=== PATIENT | male | born 1990 | race Caucasian/White ===

== ENCOUNTER 2020-04-10 13:33 | Emergency (ER) | payer MEDICAID ==
[~2020-04-10] VITALS: Ht 188 cm; Wt 104.3 kg
[2020-04-10 13:33] VITALS: BP_SYST 144
--- NOTE | 2020-04-10 13:40 | NUR ---
Patient triaged and placed in waiting room. VSS and patient appears in no acute distress at this time. Accompanied by MOTHER, awaiting available bed, and MD notified of need for MSE.
--- NOTE | 2020-04-10 13:52 | NUR ---
ER Dr. BARAJAS at bedside examining patient.
--- NOTE | 2020-04-10 14:18 | NUR ---
BROUGHT BACK TO BED #7 AND REPORT GIVEN TO NURSE
--- NOTE | 2020-04-10 14:20 | NUR ---
PATIENT PRESENTED TO ER C/O GENERALIZED WEAKNESS. PATIENT AMBULATORY TO ER, AFEBRILE, SKIN PINK & WARM, PAIN /, DENIES N/V/D. PT BIB MOTHER FOR LETHARGY, TIRED, WEAK, DECREASED APPETITE, DIZZY FOR LAST 3 DAYS. pT STSTES HE HAS HX OF AUTISM.
[2020-04-10 14:33] LABS: BASOPHILS % (AUTO) 0.5 % (0.0-2.0); EOSINOPHILS % (AUTO) 0.8 % (0.0-4.0); HEMATOCRIT 45.2 % (36-54); HEMOGLOBIN 15.1 g/dL (14.0-18.0); LYMPHOCYTES # (AUTO) 1.2 K/uL (1.0-5.5); LYMPHOCYTES % (AUTO) 30.7 % (20.5-51.5); MEAN CORPUSCULAR HEMOGLOBIN 31 pg (27-31); MEAN CORPUSCULAR HGB CONC 34 % (32-36); MEAN CORPUSCULAR VOLUME 92 fL (79.0-98.0); MONOCYTES # (AUTO) 0.6 K/uL (0.0-1.0); NEUTROPHILS # (AUTO) 2.2 K/uL (1.8-7.7); PLATELET COUNT (AUTO) 226 K/uL (130-430); RED BLOOD CELL COUNT(AUTO) 4.89 MIL/uL (4.2-6.2); RED CELL DISTRIBUTION WIDTH 13.7 % (9.0-15.0)
[2020-04-10 14:41] LABS: CALCIUM 8.9 mg/dL (8.4-11.0); CREATININE 0.86 mg/dL (0.55-1.30); POTASSIUM 3.9 mmol/L (3.5-5.1)
[2020-04-10 14:48] LABS: ALBUMIN 3.8 g/dL (3.4-4.8); TOTAL BILIRUBIN 0.8 mg/dL (0.0-1.0)
[2020-04-10 15:57] LABS: BILIRUBIN,URINE NEGATIVE (NEGATIVE); CLARITY/URINE CLEAR (CLEAR); COLOR,URINE YELLOW (YELLOW); GLUCOSE,URINE NEGATIVE (NEGATIVE); KETONES,URINE NEGATIVE (NEGATIVE); LEUKOCYTE ESTERASE ,URINE NEGATIVE (NEGATIVE); NITRITE, URINE NEGATIVE (NEGATIVE); PH,URINE 6.5 (5.0-8.0); PROTEIN URINE NEGATIVE (NEGATIVE)
[2020-04-10 16:02] LABS: BLOOD, URINE TRACE (NEGATIVE)
[2020-04-10 16:08] LABS: RBC,URINE 0-3 /HPF (0-3)
[2020-04-10 16:09] LABS: BACTERIA,URINE RARE /HPF (None Seen); MUCUS,URINE None Seen /LPF (None Seen); WBC,URINE 0-3 /HPF (0-3)
--- NOTE | 2020-04-10 16:23 | NUR ---
DR BARAJAS IN TO SEE PT, DISCUSSING LAB RESULTS/TESTS WITH MOTHER AND PT.
[2020-04-10 16:26] VITALS: BP_SYST 144
--- NOTE | 2020-04-10 16:27 | NUR ---
Patient given written and verbal discharge instructions and verbalizes understanding. ER MD discussed with patient the results and treatment provided. Patient in stable condition. ID arm band removed. No Rx given. Patient educated on pain management and to follow up with PMD. Pain Scale 0/10. Opportunity for questions provided and answered. Medication side effect fact sheet provided.
== END 2020-04-10 16:27 | disposition home or self-care (01) ==
LOC: SED 13:33
DX: M79.18 Myalgia, other site (principal); F84.5 Asperger's syndrome
CPT/HCPCS: 36415; 71045; 80053; 81000-TC; 85025; 99284

== ENCOUNTER 2020-04-12 21:30 | Emergency (ER) | payer MEDICAID ==
[~2020-04-12] VITALS: Ht 188 cm; Wt 136.1 kg
[2020-04-12 21:45] VITALS: BP_SYST 142
--- NOTE | 2020-04-12 22:50 | NUR ---
Patient to ER bed 2 to gown for evaluation. Side rails up. Report given to Faith LEACH.
--- NOTE | 2020-04-12 22:55 | NUR ---
MOTHER AT BEDSIDE.
--- NOTE | 2020-04-12 22:55 | NUR ---
PT C/O OF LEFT LEG PAIN WHEN WALKING FOR ABOUT A WEEK. 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 PTS MOM REPORTS SHE NOTICED PT SWEATING, SHORT OF BREATH, DIZZY WHEN WALKING IN [facility] YESTERDAY. PT LEFT LEG SWOLLEN & TENDER. PT TOOK TYLENOL TODAY. PT DENIES PAST MEDICAL HISTORY.
--- NOTE | 2020-04-12 22:57 | NUR ---
ER at bedside examining patient.
[2020-04-12] MEDS ORDERED: KETOROLAC TROMETHAMINE 60 MG/2 ML VIAL IM ONE (23:00)
--- NOTE | 2020-04-12 23:23 | NUR ---
XRAY AT BEDSIDE.
[2020-04-13 00:07] VITALS: BP_SYST 125
--- NOTE | 2020-04-13 00:07 | NUR ---
Patient given written and verbal discharge instructions and verbalizes understanding. ER MD discussed with patient the results and treatment provided. Patient in stable condition. ID arm band removed. Rx of MOTRIN given. Patient educated on pain management and to follow up with PMD. Pain Scale 4/10. Opportunity for questions provided and answered. Medication side effect fact sheet provided.
== END 2020-04-13 00:07 | disposition home or self-care (01) ==
LOC: SED 21:30
DX: I83.92 Asymptomatic varicose veins of left lower extremity (principal)
CPT/HCPCS: 71045; 73502; 96372; 99284; J1885

== ENCOUNTER 2024-08-15 17:31 | Inpatient (IN) | payer MEDICAID ==
[~2024-08-15] VITALS: Ht 190.5 cm; Wt 132.5 kg
[2024-08-15 17:31] VITALS: BP_SYST 110; PULSE 111; RESP 19; TEMP 97.3; O2SAT 99
[2024-08-15] MEDS ORDERED: iohexoL 350 mgI/mL, 100 ML INFUS..BTL IV ONE (17:47)
[2024-08-15 18:15] LABS: BASOPHILS % (AUTO) 0.4 % (0.0-2.0); EOSINOPHILS # (AUTO) 0.1 K/uL (0.0-0.4); EOSINOPHILS % (AUTO) 0.7 % (0.0-4.0); HEMATOCRIT 43.8 % (36-54); HEMOGLOBIN 15.5 g/dL (14.0-18.0); LYMPHOCYTES # (AUTO) 2.7 K/uL (1.0-5.5); LYMPHOCYTES % (AUTO) 38.2 % (20.5-51.5); MEAN CORPUSCULAR HEMOGLOBIN 34 pg (27-31); MEAN CORPUSCULAR HGB CONC 35 % (32-36); MEAN CORPUSCULAR VOLUME 95 fL (79.0-98.0); MONOCYTES # (AUTO) 0.5 K/uL (0.0-1.0); NEUTROPHILS # (AUTO) 3.8 K/uL (1.8-7.7); NEUTROPHILS % (AUTO) 53.7 % (40.0-70.0); PLATELET COUNT (AUTO) 236 K/uL (130-430); RED BLOOD CELL COUNT(AUTO) 4.62 MIL/uL (4.2-6.2); RED CELL DISTRIBUTION WIDTH 12.5 % (9.0-15.0); WHITE BLOOD COUNT (AUTO) 7.1 K/uL (4.8-10.8)
[2024-08-15 18:17] LABS: ALANINE AMINOTRANSFERASE 21 U/L (12-78); ALBUMIN 3.9 g/dL (3.4-4.8); ANION GAP 17 (5-15); ASPARTATE AMINOTRANSFERASE 19 U/L (10-37); CALCIUM 9.4 mg/dL (8.4-11.0); CARBON DIOXIDE 23 mmol/L (23-29); CHLORIDE 105 mmol/L (98-107); CREATININE 1.26 mg/dL (0.55-1.30); GFR AFRICAN AMERICAN 86 mL/min (>90); GLUCOSE 95 mg/dL (74-106); POTASSIUM 3.6 mmol/L (3.5-5.1); SODIUM SERUM 145 mmol/L (136-145); TOTAL BILIRUBIN 0.6 mg/dL (0.0-1.0); TOTAL PROTEIN, SERUM 8.4 g/dL (6.4-8.3); UREA NITROGEN, BLOOD 11 mg/dL (8-21)
[2024-08-15 18:20] LABS: SALICYLATE 2 mg/dL (3-30)
[2024-08-15 18:30] LABS: ACETAMINOPHEN < 1 ug/mL (1-30); GFR NON AFRICAN-AMERICAN 71 mL/min (>90)
[2024-08-15 18:31] LABS: ALCOHOL, BLOOD < 3 mg/dL (<10)
[2024-08-15] MEDS: levETIRAcetam 1,500 MG in NS 85 ML IV ONE ×2 (18:38→19:59)
[2024-08-15 19:05] LABS: BILIRUBIN,URINE NEGATIVE (NEGATIVE); BLOOD, URINE NEGATIVE (NEGATIVE); COLOR,URINE YELLOW (YELLOW); GLUCOSE,URINE NEGATIVE (NEGATIVE); KETONES,URINE NEGATIVE (NEGATIVE); LEUKOCYTE ESTERASE ,URINE NEGATIVE (NEGATIVE); NITRITE, URINE NEGATIVE (NEGATIVE); PH,URINE 6.5 (5.0-8.0); PROTEIN URINE 1+ (NEGATIVE)
[2024-08-15] MEDS: NACL 0.9% 2,000 ML IV ONE (19:09)
[2024-08-15 19:12] LABS: CLARITY/URINE SLIGHTLY HAZY (CLEAR)
[2024-08-15 19:39] LABS: BACTERIA,URINE FEW /HPF (None Seen); CALCIUM OXALATE CRYSTALS,UR 0-10 /HPF (None Seen); RBC,URINE 0-3 /HPF (0-3)
[2024-08-15 19:40] LABS: BARBITURATE, URINE NEGATIVE (NEG <=200); BENZODIAZEPINE, URINE NEGATIVE (NEG <=150); CANNABINOID, URINE NEGATIVE (NEG <=50); COCAINE, URINE NEGATIVE (NEG <=150); METHAMPHETAMINES SCREEN,URINE NEGATIVE (NEG <=500); MUCUS,URINE None Seen /LPF (None Seen); OPIATE, URINE NEGATIVE (NEG <=100); PHENCYCLIDINE SCREEN,URINE NEGATIVE (NEG <=25); UR TRICYCLIC ANTIDEPRESSANTS NEGATIVE (NEG <=300); URINE AMPHETAMINE NEGATIVE (NEG <=500); URINE METHADONE NEGATIVE (NEG <=200); URINE OXYCODONE SCREEN NEGATIVE (NEG <=100)
[2024-08-15 20:11] LABS: COVID19 ANTIGEN SOFIA FIA NEGATIVE (NEGATIVE)
[2024-08-15 20:12] LABS: INFLUENZA TYPE A Negative (NEGATIVE); INFLUENZA TYPE B NEGATIVE (NEGATIVE)
[2024-08-15] MEDS ORDERED: LORazepam 2 MG/ML VIAL IVP PRN (20:15)
[2024-08-15 21:15] VITALS: BP_SYST 109; PULSE 103; RESP 20; TEMP 98.5; O2SAT 99
[2024-08-15] MEDS ORDERED: OXYB-55 PO (21:48)
[2024-08-15] MEDS ORDERED: SEMA0.253 SUBCUT (21:48)
[2024-08-15] MEDS ORDERED: DALF10TA PO (21:48)
[2024-08-15] MEDS ORDERED: CHOL500052 PO (21:48)
[2024-08-15] MEDS ORDERED: OFAT20PE SUBCUT (21:48)
[2024-08-15] MEDS: ACETAMINOPHEN 325 MG TABLET PO PRN (22:21)
[2024-08-16 00:05] VITALS: BP_SYST 111; PULSE 78; RESP 19; TEMP 97.7; O2SAT 96
[2024-08-16 07:50] VITALS: BP_SYST 120; PULSE 62; RESP 18; TEMP 97.8; O2SAT 100
[2024-08-16] MEDS ORDERED: GADOTERATE MEGLUMINE 7.5 MMOL/15 ML VIAL IV ONE (09:05)
[2024-08-16 09:15] VITALS: O2SAT 100
[2024-08-16] MEDS: levETIRAcetam 500 MG TABLET PO SCH (10:48)
[2024-08-16 20:04] VITALS: BP_SYST 125; PULSE 63; RESP 19; O2SAT 98
[2024-08-16] MEDS: oxyBUTYnin chloride 5 MG TABLET PO SCH (20:52)
[2024-08-17] MEDS ORDERED: CHOLECALCIFEROL (VITAMIN D3) 5,000 UNIT TABLET PO SCH (09:00)
[2024-08-17] MEDS ORDERED: DALFAMPRIDINE PO SCH (09:00)
[2024-08-17] MEDS ORDERED: OXYBUTYNIN CHLORIDE 5 MG XL TAB PO SCH (09:00)
== END 2024-08-17 23:00 | disposition home or self-care (01) | DRG 53 ==
LOC: SED 17:31 → STU 19:45
PROVIDERS: ADMIT Internal Medicine; ATTEND Internal Medicine
PROC: 4A00X4Z Measurement of Central Nervous Electrical Activity, External Approach (ICD-10-PCS; principal; 2024-08-17)
DX: R56.9 Unspecified convulsions (principal); R65.10 Systemic inflammatory response syndrome (SIRS) of non-infectious origin without acute organ dysfunction; I69.354 Hemiplegia and hemiparesis following cerebral infarction affecting left non-dominant side; G35 Multiple sclerosis; F84.5 Asperger's syndrome; Z20.822 Contact with and (suspected) exposure to COVID-19; E66.9 Obesity, unspecified; Z68.36 Body mass index [BMI] 36.0-36.9, adult; Z79.899 Other long term (current) drug therapy; Z87.828 Personal history of other (healed) physical injury and trauma
CPT/HCPCS: 36415; 70450-TC; 70496; 70498; 70553; 71045; 80053; 80307; 81000; 81001; 81015; 83605; 84484; 85025; 86886; 86900; 86901; 93005; 99291; A9575; G0378; G0480; G0481; G0482; J1953; Q9967